=== PATIENT | male | born 1985 | race Caucasian/White ===

== ENCOUNTER 2022-01-06 06:12 | Day surgery (SDC) | payer BC ==
[2021-12-31 14:31] VITALS: BMI 38.0
[2022-01-06] MEDS ORDERED: BUPIVACAINE HCL/EPINEPHRINE/PF 30 ML VIAL IJ ONE (07:13)
[2022-01-06] MEDS ORDERED: BUPIVACAINE HCL 100 ML ONE (07:13)
[2022-01-06] MEDS ORDERED: MIDAZOLAM HCL 2 MG/2 ML SINGLE DOSE VIAL ONE (08:02)
[2022-01-06] MEDS ORDERED: PROPOFOL 20 ML ONE (08:02)
[2022-01-06] MEDS ORDERED: LIDOCAINE HCL/PF 2% SDV 5ML VIAL ONE (08:03)
[2022-01-06] MEDS ORDERED: LIDOCAINE HCL 2% JELLY (5 ML/TUBE) ONE (08:03)
[2022-01-06] MEDS ORDERED: KETOROLAC TROMETHAMINE 30 MG/1 ML VIAL ONE (08:16)
[2022-01-06] MEDS ORDERED: ONDANSETRON 4 MG/2 ML VIAL ONE (08:16)
[2022-01-06] MEDS ORDERED: DEXAMETHASONE SOD PHOSPHATE 4 MG/1 ML VIAL ONE (08:16)
[2022-01-06] MEDS ORDERED: ceFAZolin SODIUM 1 GM VIAL ONE (08:16)
[2022-01-06] MEDS ORDERED: ONDANSETRON 4 MG/2 ML VIAL IVPUSH PRN ×2 (09:05→09:11)
[2022-01-06] MEDS ORDERED: ACETAMINOPHEN 325 MG TABLET (FP) PO PRN (09:05)
[2022-01-06] MEDS ORDERED: oxyCODONE HCL 5 MG TABLET PO PRN ×2 (09:11)
[2022-01-06] MEDS ORDERED: PROMETHAZINE HCL 25 MG/1 ML VIAL IVPUSH PRN (09:11)
[2022-01-06] MEDS ORDERED: LACTATED RINGERS SOLUTION 1,000 ML IV SCH (09:15)
[2022-01-06 10:27] VITALS: PULSE 71
[2022-01-06 10:40] VITALS: BP 118/74; TEMP 97.6
== END 2022-01-06 10:40 | disposition home or self-care (01) ==
LOC: FASU 06:12
PROVIDERS: ATTEND Plastic Surgery
PROC: 0HX4XZZ Transfer Neck Skin, External Approach (ICD-10-PCS; 2022-01-06)
PROC: 0JB50ZZ Excision of Left Neck Subcutaneous Tissue and Fascia, Open Approach (ICD-10-PCS; principal; 2022-01-06 08:27)
DX: D17.0 Benign lipomatous neoplasm of skin and subcutaneous tissue of head, face and neck (principal)
CPT/HCPCS: 88304-TC; 94760